=== PATIENT | male | born 1990 ===

== ENCOUNTER 2016-09-28 12:06 | Day surgery (SDC) | payer OTHER ==
[2016-09-28 12:15] VITALS: BMI 26.6
--- NOTE | 2016-09-28 13:13 | C.PDOC ---
History Of Present Illness 25-year-old male, presents to the emergency department for stent removal by Dr Sarthak Malik, patient has no physical complaints at this time Time Seen by Provider: 09/28/16 12:45 Chief Complaint (Nursing): Medical Clearance History Per: Patient History/Exam Limitations: no limitations Past Medical History Reviewed: Historical Data, Nursing Documentation, Vital Signs Vital Signs: Last Vital Signs Temp 98.3 F 09/28/16 13:22 Pulse 72 09/28/16 13:22 Resp 18 09/28/16 13:22 BP 128/87 09/28/16 13:22 Pulse Ox 98 09/28/16 13:22 - Medical History PMH: Asthma, Kidney Stones, Chronic Kidney Disease - [facility] Procedures DILATION OF LEFT URETER WITH INTRALUMINAL DEVICE, ENDO (07/09/16) FRAGMENTATION IN LEFT KIDNEY PELVIS, ENDO (09/05/16) Family History: States: Unknown Family Hx - Social History Hx Tobacco Use: Yes (light smoker) Hx Alcohol Use: No Hx Substance Use: No - Immunization History Hx Tetanus Toxoid Vaccination: No Hx Influenza Vaccination: No Hx Pneumococcal Vaccination: Yes Review Of Systems Except As Marked, All Systems Reviewed And Found Negative. Constitutional: Negative for: Fever, Chills Cardiovascular: Negative for: Chest Pain Respiratory: Negative for: Shortness of Breath Gastrointestinal: Negative for: Vomiting Skin: Negative for: Rash Neurological: Negative for: Weakness, Numbness, Headache, Dizziness Physical Exam - Physical Exam Appears: Non-toxic, No Acute Distress Skin: Warm, Dry, No Rash Eye(s): bilateral: Normal Inspection Nose: Normal Oral Mucosa: Moist Lips: Normal Appearing Neck: Normal ROM Respiratory: No Accessory Muscle Use Extremity: Normal ROM Neurological/Psych: Oriented x3, Normal Speech ED Course And Treatment - Laboratory Results Result Diagrams: 09/28/16 13:25 09/28/16 13:25 O2 Sat by Pulse Oximetry: 96 Progress Note: CASE DW Dr Sarthak Malik, states to admit patient for same day surgery Disposition - Disposition Disposition: HOSPITALIZED Disposition Time: 13:49 Condition: STABLE - Clinical Impression Clinical Impression: Urinary tract stones - Scribe Statement The provider has reviewed the documentation as recorded by the Scribame James All medical record entries made by the Scribe were at my direction and personally dictated by me. I have reviewed the chart and agree that the record accurately reflects my personal performance of the history, physical exam, medical decision making, and the department course for this patient. I have also personally directed, reviewed, and agree with the discharge instructions and disposition. Decision To Admit - Pt Status Changed To: Hospital Disposition Of: SDS- Endo,OR,Cath,IR - . Bed Request Type: Same Day Surgery Admitting Physician: Sarthak Malik Patient Diagnosis: Urinary tract stones
[2016-09-28 13:35] LABS: BASO # 0.1 K/uL (0.0-0.2); BASO % 1.1 % (0.0-2.0); EOS # 0.9 K/uL (0.0-0.7); HEMATOCRIT 43.7 % (35.0-51.0); LYMPH # 2.5 K/uL (1.0-4.3); LYMPH % 29.1 % (20.0-40.0); MEAN CELL VOLUME 81.3 fL (80.0-94.0); MEAN CORPUSCULAR HEMOGLOBIN 27.1 pg (27.0-31.0); MEAN CORPUSCULAR HGB CONC 33.3 g/dL (33.0-37.0); MONO # 0.5 K/uL (0.0-0.8); MONO % 5.9 % (0.0-10.0); NRBC % 0.1 % (0.0-2.0); WHITE BLOOD COUNT 8.7 K/uL (4.8-10.8)
[2016-09-28 13:42] LABS: CHLORIDE 101 mmol/L (98-107)
[2016-09-28 13:43] LABS: POTASSIUM 3.9 mmol/L (3.6-5.2); SODIUM 143 mmol/L (132-148)
[2016-09-28 13:45] LABS: ALB/GLOB RATIO 1.2 (1.0-2.1); AST/SGOT 19 U/L (17-59); BILIRUBIN,TOTAL 0.4 mg/dL (0.2-1.3); BLOOD UREA NITROGEN 9 mg/dL (9-20); CARBON DIOXIDE 29 mmol/L (22-30); GFR AFRICAN-AMERICAN > 60; TOTAL PROTEIN 7.3 g/dL (6.3-8.3)
[2016-09-28 13:46] LABS: ALKALINE PHOSPHATASE 68 U/L (38-126); ALT/SGPT 38 U/L (21-72); GLUCOSE,RANDOM 80 mg/dL (75-110)
[2016-09-28] MEDS ORDERED: Morphine 4 MG/ML VIAL ONE (14:12)
[2016-09-28] MEDS ORDERED: Lactated Ringer's 1,000 ML IV ONE (14:32)
--- NOTE | 2016-09-28 14:45 | RAD ---
HISTORY: preop COMPARISON: Chest x-ray performed 07/10/16 TECHNIQUE: Chest, one view. FINDINGS: Examination limited by habitus. LUNGS: No focal consolidation. Please note that chest x-ray has limited sensitivity for the detection of pulmonary masses. PLEURA: No significant pleural effusion identified. No definite pneumothorax . CARDIOVASCULAR: The cardiomediastinal silhouette appears within normal limits of size. OSSEOUS STRUCTURES: No acute osseous abnormality identified. VISUALIZED UPPER ABDOMEN: Unremarkable. OTHER FINDINGS: None. IMPRESSION: No focal consolidation, significant pleural effusion, or definite pneumothorax identified.
[2016-09-28] MEDS ORDERED: Oxycodone/Acetaminophen 5/325 mg Tab PO PRN (16:38)
[2016-09-28] MEDS ORDERED: Iohexol 240 (50 ml) ONE (16:47)
[2016-09-28] MEDS ORDERED: cefTRIAXone IV 1 gm in Dextros 50 ML IVPB ONE (16:47)
[2016-09-28] MEDS ORDERED: Midazolam 2 MG/2 ML VIAL ONE (16:50)
[2016-09-28] MEDS ORDERED: Propofol 10 mg/ml Inj (20 ML) ONE ×2 (16:50→17:08)
[2016-09-28] MEDS ORDERED: Lidocaine Hydrochloride 5 ML INJ ONE (16:51)
[2016-09-28] MEDS ORDERED: Gentamicin 80 mg in 0.9% NS 100 ML IVPB SCH (17:00)
[2016-09-28] MEDS ORDERED: Albuterol 0.083% Inhal Sol (2.5 mg/3 mL) UD INH STA (17:34)
[2016-09-28 18:32] VITALS: BP 132/70; PULSE 66; RESP 20; TEMP 97.3; O2SAT 100
--- NOTE | 2016-09-29 15:03 | RAD ---
HISTORY: LEFT KIDNEY STONE COMPARISON: 09/06/2016. FINDINGS: BOWEL: Normal. No obstruction. No free air. BONES: Normal. OTHER FINDINGS: Presumed ureteral stent on the left. Stippled calcification in the lower pole of the left kidney again noted. IMPRESSION: Left-sided ureteral stent. Left-sided renal calculi.
--- NOTE | 2016-09-30 11:08 | RAD ---
Fluoroscopy dated 09/28/2016 History: Kidney stone. . Stent removal. Fluoroscopic images of the upper and lower abdomen performed vinh abdominal radiograph 09/06/2016 Correlation made with Previously noted in situ left ureteral stent no longer visible. Calcifications seen overlying lower pole left kidney less well delineated on this exam due to overlying bowel gas. Approximately 2.75 seconds of fluoroscopy time utilized. Total Radiation Dose = 302.2 mGy. Impression: Fluoroscopic guided ureteral stent removal. .
--- NOTE | 2016-10-01 09:16 | CARD ---
APPROVED REPORT EKG Measurement Heart [id number] <Conclusion> Normal sinus rhythm with sinus arrhythmia Normal ECG
--- NOTE | 2016-10-16 08:40 | HP ---
REASON FOR ADMISSION: Further treatment of kidney stones. A very pleasant, but extremely noncompliant gentleman who has severe kidney stone disease. I have be en treating him for over a month now where I have been trying to get the patient to come back in. He is just very reluctant to come back in for various reasons. At this point, he presents to the Emergency Room with severe pain and we are going to bring him to [facility] operating room immediately, see the plans listed below, and try to complete the treatment of his st ones. Specifically, the patient is going to most likely have remnant stones up in his kidney. I had recomm ended shockwave lithotripsy for these stones. What we are doing is clearing out the kidney to the bladder. That is any ureteral stones that are evident, but at this point since he is noncompliant, I just want to remove his stent. See the body of the operative report as listed. We will try to get the stones if we can, but most importantly is to have the patient without a stent so he does not have retained stent. PAST MEDICAL AND SURGICAL HISTORY: As listed above, noncontributory. SOCIAL HISTORY: This is a difficult problem for the patient, not only that he is uninsured, but he h as difficult relationships and at least the story that he presents to me. He asked me to lie to his father directly to say that I was charging more money. He brought a father in and then he said he was his stepfather in some story. I explained to the patient that my issues are medical treatment and not his social status. But after discussing all these options with the patient and just mentioning this for chart completion , it is a peculiar story where he has some difficulty maintaining jobs and also maintaining expenses. According to the stepfather that came in, said he has bailed him out many, many times before and came in to pay the office bills, but that is a significant social impact because it affects my recommenda tions and treatments (and I have explained this to the patient in general and specific terms that I a m not here to lie to somebody else and I am also here as medicine, but even knowing that I am l eaving him with stones after today, the potential for stones, I may be able to get them all out, but either way, I need to get his stent out before it becomes an encrusted and retained stent). REVIEW OF SYSTEMS: As above, noncontributory other than usual pain from the stent. Nothing else significant. The patient has been back to the ER with no significant other troubles. PHYSICAL EXAMINATION GENERAL: Well-nourished male, in no apparent distress. VITAL SIGNS: Within normal limits . ABDOMEN: Soft, nontender. No flank mass appreciated. GENITOURINARY: Normal male phallus no testicular mass. RECTAL: 10-20 gram prostate, soft and smooth. LABORATORIES: See chart. DIAGNOSES: Urolithiasis, hematuria, hydronephrosis, severe flank pain and tremendous stone burden. PLAN: The patient presented with a large stone in his ureter. At that point, we placed a stent. We have recommended shockwave lithotripsy. For various insurance reasons, he was not able to get out [facility]. We then treated him here with ureteroscopy and laser lithotripsy. Again, I did as best as possible. Now, it is time we are just going to take the stent out and make sure there are no stones between the kidney and the bladder. And then further plans will follow, but my recommendation is still for more treatment, but the patien t has been fairly unreliable. I just want to proceed. I have explained this all to the patient at length. So the plan is as follows: 1. Cystoscopy. 2. Ureteroscopy. 3. Laser of any stones that are visible. 4. Removal of everything. We may remove the stent with a dangle, but either way, he will be able to take that out within a day. Jace Malik MD cc: [phone] TT: 10/16/2016 08:39:12 en
--- NOTE | 2016-10-16 09:39 | OP ---
PROCEDURE DATE: 09/28/2016 UROLOGY OPERATIVE REPORT PREOPERATIVE DIAGNOSIS: See the previously dictated history and physical and consultation note, and many previous progress notes. Also see the office chart notes. The patient is here now for the following procedure. He is here for a cystoscopy, ureteroscopy, and laser lithotripsy. POSTOPERATIVE DIAGNOSIS: See the previously dictated history and physical and consultation note, and many previous progress notes. Also see the office chart notes. The patient is here now for the following procedure. He is here for a cystoscopy, ureteroscopy, and laser lithotripsy. PROCEDURE: Cystoscopy, removal of double-J stent, ureteroscopy, laser lithotripsy of stones. An insertion of a double-J stent with dangles. Cystoscopy, ureteroscopy, laser. COMPLICATIONS: There were no complications. BLOOD LOSS: Less than 10 mL. INDICATIONS: See the history and physical for the details. A very pleasant, but ____ gentleman. He is here for the above procedure. I discussed options in that after today, we are going to be moving the stent, and then he will need a ny more procedures. It is conceivable that will not have removed all the stone material until ____ b etween the bladder and the ureter, and if there are any represent of ____ kidney stones ____, we can at that time treat those stones with the ureteroscope, and he is welcome to come back for more treatm ent, but at this point, I just want to remove the stent. PROCEDURE: After obtaining informed consent, the patient was placed on the table, routine monitors p laced, timeouts were called to confirm patient positioning. Cystoscope via the urethra. Timeouts were called to confirm the patient and positioning. Cystoscope via the urethra. We identified the old stent. Removed it. Did a wire ____up to ____ kidney. We went adjacent with t he ureteroscope. Any stones that I identified I cleared to the point that there are no stones left. Overall, we did multiple imaging. There were no complications. At the termination, there is no stone between the kidney and the ____. ADDENDUM: ____ I spoke to the patient subsequently, and he had some discomfort but no further major pains. Jace Malik MD cc: [phone] TT: 10/16/2016 08:57:14 jn
== END 2016-09-28 18:33 | disposition home or self-care (01) ==
LOC: C.ER 12:06 → C.SDS 13:49
PROVIDERS: ATTEND Urology
DX: N13.2 Hydronephrosis with renal and ureteral calculous obstruction (principal)
CPT/HCPCS: 52353; 71010; 74000; 76000; 80053; 85025; 85610; 85730; 86850; 86900; 93005; 96374; 99285; J0696; J1580; J2270; J7120

== ENCOUNTER 2016-11-13 12:51 | Observation (INO) | payer OTHER ==
[2016-11-13 12:52] VITALS: BMI 26.6
[2016-11-13] MEDS ORDERED: Sodium Chloride 0.9% 1,000 ML ONE (13:26)
--- NOTE | 2016-11-13 13:26 | C.PDOC ---
History Of Present Illness 25 y/o male pmhx kidney stones presents to the ED with complains of left flank pain, nausea and vomiting. Pt is a patient of Jace Croft. Urethral stent placed months ago. Denies fever, chest pain, SOB, diarrhea or any other complaints. Time Seen by Provider: 11/13/16 13:20 Chief Complaint (Nursing): Male Genitourinary History Per: Patient History/Exam Limitations: no limitations Onset/Duration Of Symptoms: Hrs Current Symptoms Are (Timing): Still Present Severity: Moderate Quality Of Discomfort: "Pain" Associated Symptoms: Nausea, Vomiting, Back Pain (left flank). denies: Fever, Diarrhea, Chest Pain Alleviating Factors: None Recent travel outside of the [place]: No Past Medical History Reviewed: Historical Data, Nursing Documentation, Vital Signs Vital Signs: Last Vital Signs Temp 97.6 F 11/13/16 13:05 Pulse 67 11/13/16 13:05 Resp 16 11/13/16 13:05 BP 126/77 11/13/16 13:05 Pulse Ox 97 11/13/16 14:01 - Medical History PMH: Asthma, Kidney Stones, Chronic Kidney Disease - [facility] Procedures DILATION OF LEFT URETER WITH INTRALUMINAL DEVICE, ENDO (07/09/16) FRAGMENTATION IN LEFT KIDNEY PELVIS, ENDO (09/05/16) Family History: States: Unknown Family Hx - Social History Hx Tobacco Use: Yes (light smoker) Hx Alcohol Use: No Hx Substance Use: No - Immunization History Hx Tetanus Toxoid Vaccination: No Hx Influenza Vaccination: No Hx Pneumococcal Vaccination: Yes Review Of Systems Except As Marked, All Systems Reviewed And Found Negative. Constitutional: Negative for: Fever Cardiovascular: Negative for: Chest Pain Gastrointestinal: Positive for: Nausea, Vomiting. Negative for: Abdominal Pain , Diarrhea Musculoskeletal: Positive for: Back Pain (left flank) Physical Exam - Physical Exam Appears: Non-toxic, In Acute Distress (uncomfortable) Skin: Warm, Diaphoretic, No Rash Head: Atraumatic, Normacephalic Oral Mucosa: Moist Neck: Normal ROM, Supple Chest: Symmetrical Cardiovascular: Rhythm Regular, No Murmur Respiratory: Normal Breath Sounds, No Rales, No Rhonchi, No Wheezing Gastrointestinal/Abdominal: Normal Exam, Soft, No Tenderness Back: CVA Tenderness (left) Extremity: Bilateral: Atraumatic Neurological/Psych: Oriented x3, Normal Speech ED Course And Treatment - Laboratory Results Result Diagrams: 11/13/16 13:47 11/13/16 13:47 O2 Sat by Pulse Oximetry: 97 (room air) Pulse Ox Interpretation: Normal Progress Note: Plan: CT abd, labs, dilaudid, zofran, UA, IV fluids. Case was d/ w who accepted patient to his service for observation and possible uretheral stent. Disposition - Disposition Disposition: HOSPITALIZED Disposition Time: 15:11 Condition: FAIR - Clinical Impression Clinical Impression: Renal colic on left side - PA / CELL TOWER CLIMBER / Resident Statement MD/DO has reviewed & agrees with the documentation as recorded. - Scribe Statement The provider has reviewed the documentation as recorded by the Scribe Omid Go All medical record entries made by the Staceyibe were at my direction and personally dictated by me. I have reviewed the chart and agree that the record accurately reflects my personal performance of the history, physical exam, medical decision making, and the department course for this patient. I have also personally directed, reviewed, and agree with the discharge instructions and disposition. Decision To Admit - Pt Status Changed To: Hospital Disposition Of: Observation - . Bed Request Type: Regular Admitting Physician: Sarthak Malik Patient Diagnosis: Renal colic on left side
[2016-11-13] MEDS ORDERED: Sodium Chloride 0.9% 1,000 ML IV STA (13:27)
[2016-11-13] MEDS ORDERED: HYDROmorphone 1 mg/ml ISec IVP STA (13:27)
[2016-11-13 13:53] LABS: BASO # 0.1 K/uL (0.0-0.2); BASO % 0.7 % (0.0-2.0); EOS # 0.4 K/uL (0.0-0.7); EOS % 3.5 % (0.0-4.0); HEMATOCRIT 44.5 % (35.0-51.0); LYMPH # 2.7 K/uL (1.0-4.3); LYMPH % 23.9 % (20.0-40.0); MEAN CELL VOLUME 82.3 fL (80.0-94.0); MEAN CORPUSCULAR HEMOGLOBIN 26.6 pg (27.0-31.0); MEAN CORPUSCULAR HGB CONC 32.3 g/dL (33.0-37.0); MONO # 0.5 K/uL (0.0-0.8); MONO % 4.6 % (0.0-10.0); RED CELL DISTRIBUTION WIDTH 14.7 % (11.5-14.5); WHITE BLOOD COUNT 11.5 K/uL (4.8-10.8)
[2016-11-13 14:05] LABS: CHLORIDE 105 mmol/L (98-107)
[2016-11-13 14:06] LABS: POTASSIUM 3.8 mmol/L (3.6-5.2); SODIUM 141 mmol/L (132-148)
[2016-11-13 14:08] LABS: BILIRUBIN,TOTAL 0.7 mg/dL (0.2-1.3); GFR AFRICAN-AMERICAN > 60
[2016-11-13 14:09] LABS: ALB/GLOB RATIO 1.3 (1.0-2.1); ALKALINE PHOSPHATASE 78 U/L (38-126); ALT/SGPT 26 U/L (21-72); AST/SGOT 26 U/L (17-59); BLOOD UREA NITROGEN 8 mg/dL (9-20); CALCIUM 9.1 mg/dl (8.6-10.4); CARBON DIOXIDE 24 mmol/L (22-30); GLUCOSE,RANDOM 108 mg/dL (75-110); TOTAL PROTEIN 7.5 g/dL (6.3-8.3)
[2016-11-13 14:30] LABS: RBC URINE 332 /hpf (0-3); URINE BACTERIA RARE (<OCC); URINE BILIRUBIN NEGATIVE (NEGATIVE); URINE BLOOD 1+ (NEGATIVE); URINE COLOR Yellow (YELLOW); URINE GLUCOSE (UA) NORMAL (Normal); URINE KETONE NEGATIVE (NEGATIVE); URINE LEUKOCYTE ESTERASE NEG Leu/uL (Negative); URINE PROTEIN 2+ mg/dL (NEGATIVE); URINE UROBILINOGEN NORMAL mg/dL (0.2-1.0); WBC URINE 2 /hpf (0-5)
--- NOTE | 2016-11-13 14:30 | CT ---
PROCEDURE: CT Abdomen and Pelvis without Oral or IV contrast. HISTORY: left flank pain COMPARISON: CT abdomen and pelvis without contrast performed 07/09/16 TECHNIQUE: Contiguous axial images of the abdomen and pelvis. No oral or IV contrast administered. Coronal and Sagittal reformats generated and reviewed. Radiation dose: Total exam DLP = 1159.58 mGy-cm. This CT exam was performed using one or more of the following dose reduction techniques: Automated exposure control, adjustment of the mA and/or kV according to patient size, and/or use of iterative reconstruction technique. FINDINGS: There is limited evaluation of the solid organs without the administration of IV contrast. LOWER THORAX: No visible consolidation, pleural effusion, or pneumothorax. LIVER: Unremarkable unenhanced appearance. GALLBLADDER AND BILE DUCTS: Unremarkable unenhanced appearance. PANCREAS: Unremarkable unenhanced appearance. SPLEEN: 5 mm probable splenule. Otherwise unremarkable unenhanced appearance. ADRENALS: Unremarkable unenhanced appearance. KIDNEYS AND URETERS: Edematous enlarged left kidney. 3 mm proximal left ureteral calculus with proximal hydroureteronephrosis. 9 mm, 10 mm, 2 mm, and 3 mm nonobstructing calcifications within the lower pole kidney. The unenhanced right kidney appears unremarkable without hydronephrosis or obstructing calculus. BLADDER: Distention of the urinary bladder appears otherwise unremarkable. REPRODUCTIVE: Unremarkable. APPENDIX: The appendix appears within normal limits of caliber. No secondary signs of acute appendicitis. BOWEL: The stomach is nondistended. Lack of oral contrast limits evaluation for bowel pathology. The bowel loops appear within normal limits of caliber without evidence of intestinal obstruction. PERITONEUM: No significant free fluid. No definite free air. LYMPH NODES: Sub cm mesenteric lymph nodes, nonspecific. VASCULATURE: No aortic aneurysm. BONES: Chronic T8 vertebral body mild compression fracture deformity. Degenerative changes. OTHER FINDINGS: 3 mm fat containing umbilical hernia. IMPRESSION: Edematous enlarged left kidney. 3 mm proximal left ureteral calculus with proximal hydroureteronephrosis. 9 mm, 10 mm, 2 mm, and 3 mm nonobstructing calcifications within the lower pole kidney.
[2016-11-13] MEDS ORDERED: Dextrose 5%/0.45% NS 1,000 ML IV SCH (19:00)
[2016-11-14] MEDS ORDERED: Pneumococcal 23-Valent Vaccine IM ONE (10:00)
[2016-11-14] MEDS ORDERED: Lidocaine 2% Jelly (Uro-Jet) ONE (13:47)
[2016-11-14] MEDS ORDERED: Lactated Ringer's 1,000 ML IV ONE ×2 (13:53)
[2016-11-14] MEDS ORDERED: Midazolam 2 MG/2 ML VIAL ONE (13:53)
[2016-11-14] MEDS ORDERED: Propofol 10 mg/ml Inj (20 ML) ONE (13:53)
[2016-11-14] MEDS: cefTRIAXone IV 1 gm in Dextros 50 ML IVPB ONE ×2 (13:55→14:10)
[2016-11-14] MEDS ORDERED: HYDROmorphone 0.5 mg/0.5 ml ISec IVP PRN (14:34)
[2016-11-14] MEDS ORDERED: Lactated Ringer's 1,000 ML IV SCH (14:45)
[2016-11-14 14:52] VITALS: TEMP 98.7
[2016-11-14 15:12] VITALS: O2SAT 94
--- NOTE | 2016-11-14 15:18 | RAD ---
HISTORY: LEFT KIDNEY STONE COMPARISON: 09/28/2016 FINDINGS: BOWEL: Right cecal stool retention. . No obstruction. No free air. BONES: Bilaterals sacroiliac mild sclerotic changes -similar-appearing OTHER FINDINGS: The prior clustered calcifications projecting over the left lower renal pole are similar appearing. Each renal calcification cluster is approximately 9 to 10 mm. The left ureteral stent has been removed. No interval calcifications appreciated. IMPRESSION: Interval removal -left ureteral stent. The 2 prior left lower renal pole calculi clusters are similar appearing and similar in position
[2016-11-14 16:46] VITALS: BP 122/75; PULSE 49; RESP 20
--- NOTE | 2016-11-15 17:09 | RAD ---
PROCEDURE: Fluoroscopy up to 1 hr. HISTORY: LEFT KIDNEY STONE COMPARISON: None TECHNIQUE: Standard protocol for this study/examination. FINDINGS: Submitted images from the current procedure: 6.0 Total fluoroscopic time (continuous mode) utilized during the procedure: 11.9 seconds. IMPRESSION: Less than 1 hr fluoroscopic time utilized during performance of the procedure.
--- NOTE | 2016-11-20 19:00 | HP ---
HISTORY OF PRESENT ILLNESS: The patient is a very pleasant, but pretty noncompliant gentleman, who h as stones. We had treated him with a cystoscopy, ureteroscopy, laser various treatments and then we knew he had residual stones. I had not heard from the patient for a couple months. My recommendatio ns for the residual stones is ESWL, but for various reasons, for social reasons, insurance reasons, t he patient has not been back. He now comes, called me this morning that he is having severe renal co lic. It turns out the CT scan, he has a 3 mm stone that is now passing. I discussed options with the patient and actually we are going to admit the patient as an emergency a nd then observe him. Hopefully, that stone will pass and if not, will need to consider stent inserti on. PAST MEDICAL AND SURGICAL HISTORY: There are no other changes. SOCIAL HISTORY: He has various odds and ends jobs. Currently, he is unemployed. He is about to sta rt a new job. It is not clear where exactly he lives, he had a girlfriend. He does not live with he r, he does not live with his family. REVIEW OF SYSTEMS: Listed above. I just want to mention that since I have seen him last, he says he has been okay, it is only today th at the pain started severely. On the CT scan noted he has a 3 mm stone, plus the residual stones in the left kidney that we are aware of. PHYSICAL EXAMINATION GENERAL: Well-nourished male in no apparent distress. VITAL SIGNS: All within normal limits, included in the chart. LUNGS: Clear. ABDOMEN: Overall soft, nontender. GENITOURINARY: Normal male phallus without discharge. No testicular masses. RECTAL: Deferred until the time of cystoscopy, but I will mention now rectal exam was within normal limits. LABORATORIES: See chart. DIAGNOSES: Urolithiasis, severe renal colic, hydronephrosis and a 3 mm obstructing stone and residua l stones in the kidney. ASSESSMENT AND PLAN: The patient is a very pleasant gentleman. He has a large stone burden, it has been very clear that I have discussed with the patient and mentioned to the patient that he should adams ve treatment for those stones, specifically with shockwave lithotripsy with or without a stent insert ion. However, for various reasons, mostly socially and insurance related, he has not on any treatment, but he is coming in now with severe pain. We are going to admit the patient with 3 mm stone, it is poss ible that stone will pass and if it does not, we will consider insertion of a stent. We discussed options, risks, benefits and alternatives. The plan is to proceed depending on the carlos ent's clinical course. We will discuss this with the patient further. But for now, IV fluid hydration and then possible insertion of stent. Further plans will follow. Jace Malik MD cc: [id number] TT: 11/20/2016 18:59:35 jn
--- NOTE | 2016-11-20 19:20 | OP ---
PROCEDURE DATE: 11/14/2016 PREOPERATIVE DIAGNOSES: Urolithiasis, hematuria, hydronephrosis, hematuria, severe, severe renal col ic. POSTOPERATIVE DIAGNOSES: Urolithiasis, hematuria, hydronephrosis, hematuria, severe, severe renal co lic. PROCEDURE: Cystoscopy, left retrograde pyelogram, and insertion of a left double-J stent. COMPLICATIONS: There were no complications. BLOOD LOSS: Less than 10 mL. Termination double-J stent is inserted. The stones were identified. There were no complications, but we did not remove the stent as explained to the patient. See the hi story and physical for the details. INDICATIONS: A very pleasant gentleman who is very pleasant, but extremely noncompliant. He is 25-y ears-old. We have recommended to treat the stones. We treated him, he has a large stone burden, I p reviously treated him with cystoscopy, ureteroscopy, laser lithotripsy. All that done here and the n otes dictated. In the interim, I have been explaining to the patient that he has leftover stones, re sidual stones and that we should be treating him with ESWL +/- with a stent, but either way, the carlos ent said he has been fine until today. He is finally starting a new job shortly and he comes calling with severe, severe pain. He actually presented yesterday 11/13. At that time, a 3 mm stone plus the other stones are noted up in the kidney. Today, I told the patient that we could watch him and mayb e this 3 mm stone will pass before putting stents in. However, the patient said the pain is so sever e, he cannot make it, so we are going to put a stent in as listed above, but not treating the stones. We are going to plan to come back after he dilates up the ureter, we will plan for ureteroscopy, la ser lithotripsy and then further plans will follow. Again, I am going to encourage the patient to al low finished treatment, then complete treatment, then try to rid the body of the stones with shock wa ve lithotripsy. ____ delay has been the social issues and also lack of insurance issues. I explain ed to the patient he is better off to get the stone treated and removed, but he has yet to date not a llowed this. He is now here for the above procedure. PROCEDURE: After obtaining informed consent, the patient placed on the table, routine monitors place d, timeouts were called to confirm the patient and positioning. Cystoscope via the urethra. Ureteral orifice identified. Retrograde pyelograms are performed and a double-J stent is inserted on the left side. At the termination, excision of a left double-J stent is in good location. Bladder then cystoscoped. The patient tolerated without complication. ADDENDUM: Subsequently, the patient will be eventually discharged home in stable condition with a an for outpatient followup and management. Jace Malik MD cc: [id number] TT: 11/20/2016 19:19:37 jn
== END 2016-11-14 18:00 | disposition home or self-care (01) ==
LOC: C.ER 12:51 → C.9E 15:09 → C.3T 16:53
PROVIDERS: ADMIT Urology; ATTEND Urology
DX: N13.2 Hydronephrosis with renal and ureteral calculous obstruction (principal)
CPT/HCPCS: 52332; 74000; 74176; 76000; 80053; 81001; 83690; 85025; 87086; 96374; 96375; 96376; 99284; C1758; C1769; C2617; G0378; J0696; J1170; J1885; J2405; J7040; J7042; J7120

== ENCOUNTER 2016-11-17 10:33 | Emergency (ER) | payer OTHER ==
[2016-11-17 10:34] VITALS: BMI 26.6
[2016-11-17 10:43] VITALS: PULSE 77; RESP 18; TEMP 98.2; O2SAT 97
[2016-11-17] MEDS ORDERED: Sodium Chloride 0.9% 1,000 ML IV ONE (11:07)
[2016-11-17] MEDS ORDERED: Sodium Chloride 0.9% 1,000 ML ONE (11:49)
[2016-11-17 11:52] LABS: BASO # 0.1 K/uL (0.0-0.2); BASO % 0.9 % (0.0-2.0); EOS # 0.7 K/uL (0.0-0.7); EOS % 7.9 % (0.0-4.0); HEMATOCRIT 43.3 % (35.0-51.0); LYMPH # 1.7 K/uL (1.0-4.3); LYMPH % 20.4 % (20.0-40.0); MEAN CORPUSCULAR HEMOGLOBIN 26.8 pg (27.0-31.0); MEAN CORPUSCULAR HGB CONC 32.6 g/dL (33.0-37.0); MEAN PLATELET VOLUME 9.7 fL (7.2-11.7); MONO # 0.4 K/uL (0.0-0.8); MONO % 4.7 % (0.0-10.0); NRBC % 0.2 % (0.0-2.0); RED CELL DISTRIBUTION WIDTH 14.6 % (11.5-14.5); WHITE BLOOD COUNT 8.5 K/uL (4.8-10.8)
[2016-11-17 11:57] LABS: RBC URINE 130 /hpf (0-3); URINE BACTERIA RARE (<OCC); URINE BILIRUBIN NEGATIVE (NEGATIVE); URINE BLOOD 2+ (NEGATIVE); URINE COLOR Yellow (YELLOW); URINE GLUCOSE (UA) NORMAL (Normal); URINE KETONE NEGATIVE (NEGATIVE); URINE LEUKOCYTE ESTERASE 2+ Leu/uL (Negative); URINE PROTEIN 1+ mg/dL (NEGATIVE); URINE UROBILINOGEN NORMAL mg/dL (0.2-1.0); WBC URINE 10 /hpf (0-5)
[2016-11-17 12:00] LABS: CHLORIDE 102 mmol/L (98-107); POTASSIUM 4.2 mmol/L (3.6-5.2); SODIUM 141 mmol/L (132-148)
[2016-11-17 12:02] LABS: GFR AFRICAN-AMERICAN > 60
[2016-11-17 12:03] LABS: ALB/GLOB RATIO 1.3 (1.0-2.1); ALKALINE PHOSPHATASE 64 U/L (38-126); ALT/SGPT 25 U/L (21-72); AST/SGOT 20 U/L (17-59); BILIRUBIN,TOTAL 0.5 mg/dL (0.2-1.3); BLOOD UREA NITROGEN 7 mg/dL (9-20); CARBON DIOXIDE 26 mmol/L (22-30); GLUCOSE,RANDOM 91 mg/dL (75-110); TOTAL PROTEIN 7.1 g/dL (6.3-8.3)
[2016-11-17 12:04] LABS: INR 0.9
[2016-11-17] MEDS ORDERED: Morphine 4 MG/ML VIAL ONE ×2 (12:14→14:50)
--- NOTE | 2016-11-17 13:40 | C.PDOC ---
History Of Present Illness 25 y/o male presents to the ED with complains of severe lower abdominal pain which onset after uretral stent placed 2 days ago. Pain associated with hematuria. Patient discussed symptoms with Dr Croft who told him to come to ED for further evaluation. Denies fever, chills, back pain or any other complaints. Time Seen by Provider: 11/17/16 10:50 Chief Complaint (Nursing): Back Pain History Per: Patient History/Exam Limitations: no limitations Onset/Duration Of Symptoms: Days Current Symptoms Are (Timing): Still Present Quality Of Discomfort: Sharp Severity: Moderate Pain Scale Rating Of: 8 Associated Symptoms: None Exacerbating Factor(s): Nothing Recent travel outside of the [place]: No Past Medical History Reviewed: Historical Data, Nursing Documentation, Vital Signs Vital Signs: Last Vital Signs Temp 98.2 F 11/17/16 10:41 Pulse 77 11/17/16 10:41 Resp 18 11/17/16 10:41 BP 122/78 11/17/16 14:55 Pulse Ox 97 11/17/16 14:56 - Medical History PMH: Asthma, Kidney Stones, Chronic Kidney Disease - [facility] Procedures DILATION OF LEFT URETER WITH INTRALUMINAL DEVICE, ENDO (07/09/16) FRAGMENTATION IN LEFT KIDNEY PELVIS, ENDO (09/05/16) Family History: States: No Known Family Hx - Social History Hx Tobacco Use: Yes (light smoker) Hx Alcohol Use: No Hx Substance Use: No - Immunization History Hx Tetanus Toxoid Vaccination: No Hx Influenza Vaccination: No Hx Pneumococcal Vaccination: Yes Review Of Systems Except As Marked, All Systems Reviewed And Found Negative. Constitutional: Negative for: Fever, Chills Gastrointestinal: Positive for: Abdominal Pain (severe). Negative for: Vomiting Genitourinary: Positive for: Hematuria Musculoskeletal: Negative for: Back Pain Physical Exam - Physical Exam Appears: Non-toxic, In Acute Distress (mild painful distress) Skin: Warm, Dry, No Rash Head: Atraumatic, Normacephalic Eye(s): bilateral: Normal Inspection, PERRL, EOMI Oral Mucosa: Moist Neck: Normal, Normal ROM, Supple Chest: Symmetrical Cardiovascular: Rhythm Regular, No Friction Rub, No Murmur Respiratory: Normal Breath Sounds, No Rales, No Rhonchi, No Wheezing Gastrointestinal/Abdominal: Normal Exam, Soft, No Tenderness Back: Normal Inspection, No CVA Tenderness Extremity: Normal ROM, No Swelling Extremity: Bilateral: Atraumatic Neurological/Psych: Oriented x3, Normal Speech, Normal Motor Gait: Steady ED Course And Treatment - Laboratory Results Result Diagrams: 11/17/16 11:49 11/17/16 11:49 O2 Sat by Pulse Oximetry: 97 (room air) Pulse Ox Interpretation: Normal Medical Decision Making Medical Decision Making: Plan: XR abdomen The case was discussed with Dr. Jace Malik who states if the stent is in place, then there is no need for admission. XR abdominal plate shows stent in place, no obstruction or free air. On re-exam , the patient reports improvement of symptoms. Lungs are CTA, heart is RRR, abdomen is soft, non-tender and patient is tolerating PO well. Patient is ambulatory in the ED with steady gait. Follow up with the Urologist within 1-2 days, Return if worsened. Disposition - Disposition Referrals: Sarthak Malik MD [Staff Provider] - Disposition: HOME/ ROUTINE Disposition Time: 14:55 Condition: GOOD Additional Instructions: Follow up with the medical doctor within 1-2 days, Return if worsened. Instructions: Renal Colic (ED) - Clinical Impression Clinical Impression: Renal colic, Left flank pain - PA / VISUAL MERCHANDISING COORDINATOR / Resident Statement MD/DO has reviewed & agrees with the documentation as recorded. - Scribe Statement The provider has reviewed the documentation as recorded by the Davidson Go All medical record entries made by the Davidson were at my direction and personally dictated by me. I have reviewed the chart and agree that the record accurately reflects my personal performance of the history, physical exam, medical decision making, and the department course for this patient. I have also personally directed, reviewed, and agree with the discharge instructions and disposition.
--- NOTE | 2016-11-17 14:00 | RAD ---
HISTORY: Abdominal pain following stent placement. COMPARISON: 11/14/2016. FINDINGS: BOWEL: Normal. No obstruction. No free air. BONES: Normal. OTHER FINDINGS: Position of the double J stent catheter(s): Satisfactory. Calculi again identified in the lower pole of the left kidney. IMPRESSION: Satisfactory position of unilateral, left double-J stent catheter. No acute findings. Concordant results with the preliminary interpretation rendered by the emergency department physician procedure.
[2016-11-17 14:56] VITALS: BP 122/78
--- NOTE | 2016-11-24 13:46 | CARD ---
APPROVED REPORT EKG Measurement Heart [id number] <Conclusion> Normal sinus rhythm Normal ECG
== END 2016-11-17 15:25 | disposition home or self-care (01) ==
LOC: C.ER 10:33
DX: N23 Unspecified renal colic (principal); Z98.890 Other specified postprocedural states
CPT/HCPCS: 74000; 80053; 81001; 85025; 85610; 85730; 96361; 96374; 96375; 96376; 99283; J1885; J2270; J7040

== ENCOUNTER 2016-11-20 11:49 | Observation (INO) | payer OTHER ==
[2016-11-20 11:49] VITALS: BMI 26.6
--- NOTE | 2016-11-20 12:45 | C.PDOC ---
History Of Present Illness Patient is a 25 year old male with a PMHx of kidney stones sent to the ER by his urologist for a stent removal. Patient denies any physical complaints at this time. Time Seen by Provider: 11/20/16 12:40 Chief Complaint (Nursing): Male Genitourinary History Per: Patient History/Exam Limitations: no limitations Onset/Duration Of Symptoms: Other (No symptoms) Current Symptoms Are (Timing): Gone (No symptoms) Associated Symptoms: denies: Fever, Nausea, Vomiting Recent travel outside of the [place]: No Past Medical History Reviewed: Historical Data, Nursing Documentation, Vital Signs Vital Signs: Last Vital Signs Temp 97.8 F 11/20/16 14:26 Pulse 56 L 11/20/16 14:26 Resp 16 11/20/16 14:26 BP 122/75 11/20/16 14:26 Pulse Ox 98 11/20/16 14:26 - Medical History PMH: Asthma, Kidney Stones, Chronic Kidney Disease - [facility] Procedures DILATION OF LEFT URETER WITH INTRALUMINAL DEVICE, ENDO (07/09/16) FRAGMENTATION IN LEFT KIDNEY PELVIS, ENDO (09/05/16) Family History: States: Unknown Family Hx - Social History Hx Tobacco Use: Yes (light smoker) Hx Alcohol Use: No Hx Substance Use: No - Immunization History Hx Tetanus Toxoid Vaccination: No Hx Influenza Vaccination: No Hx Pneumococcal Vaccination: Yes Review Of Systems Except As Marked, All Systems Reviewed And Found Negative. Physical Exam - Physical Exam Appears: Well, Non-toxic Skin: Normal Color, Warm, Dry Head: Atraumatic, Normacephalic Oral Mucosa: Moist Chest: Symmetrical, No Tenderness Cardiovascular: Rhythm Regular, No Murmur Respiratory: Normal Breath Sounds, No Rales, No Rhonchi, No Wheezing Gastrointestinal/Abdominal: Soft, No Tenderness Neurological/Psych: Oriented x3, Normal Speech, Normal Cognition ED Course And Treatment - Laboratory Results Result Diagrams: 11/20/16 13:40 11/20/16 13:40 O2 Sat by Pulse Oximetry: 100 (Room air) Pulse Ox Interpretation: Normal Medical Decision Making Medical Decision Making: Plan: * Blood work Patient discussed with Dr. Malik, will take patient to OR. Spoke with Dr. Malik at 13:43, states patient is ready to go up to the OR, does not need results of lab tests. Disposition - Disposition Disposition: HOSPITALIZED Disposition Time: 16:07 Condition: STABLE - Clinical Impression Clinical Impression: Encounter for removal of ureteral stent - Staceyibe Statement The provider has reviewed the documentation as recorded by the Scribame Betancourt All medical record entries made by the Staceyibe were at my direction and personally dictated by me. I have reviewed the chart and agree that the record accurately reflects my personal performance of the history, physical exam, medical decision making, and the department course for this patient. I have also personally directed, reviewed, and agree with the discharge instructions and disposition.
[2016-11-20 13:46] LABS: BASO # 0.1 K/uL (0.0-0.2); BASO % 1.3 % (0.0-2.0); EOS # 0.8 K/uL (0.0-0.7); EOS % 8.6 % (0.0-4.0); HEMATOCRIT 42.4 % (35.0-51.0); LYMPH # 2.3 K/uL (1.0-4.3); LYMPH % 26.5 % (20.0-40.0); MEAN CORPUSCULAR HEMOGLOBIN 26.8 pg (27.0-31.0); MEAN CORPUSCULAR HGB CONC 32.7 g/dL (33.0-37.0); MEAN PLATELET VOLUME 9.7 fL (7.2-11.7); MONO # 0.4 K/uL (0.0-0.8); MONO % 4.4 % (0.0-10.0); RED CELL DISTRIBUTION WIDTH 14.7 % (11.5-14.5); WHITE BLOOD COUNT 8.8 K/uL (4.8-10.8)
[2016-11-20 13:54] LABS: INR 0.9
[2016-11-20 13:56] LABS: CHLORIDE 100 mmol/L (98-107); POTASSIUM 4.1 mmol/L (3.6-5.2); SODIUM 136 mmol/L (132-148)
[2016-11-20 13:58] LABS: BILIRUBIN,TOTAL < 0.1 mg/dL (0.2-1.3); GFR AFRICAN-AMERICAN > 60
[2016-11-20 13:59] LABS: ALB/GLOB RATIO 1.4 (1.0-2.1); ALKALINE PHOSPHATASE 63 U/L (38-126); ALT/SGPT 32 U/L (21-72); AST/SGOT 22 U/L (17-59); BLOOD UREA NITROGEN 8 mg/dL (9-20); CALCIUM 9.1 mg/dl (8.6-10.4); CARBON DIOXIDE 29 mmol/L (22-30); GLUCOSE,RANDOM 79 mg/dL (75-110)
[2016-11-20] MEDS ORDERED: Midazolam 2 MG/2 ML VIAL ONE (14:19)
[2016-11-20] MEDS ORDERED: Lidocaine Hydrochloride 5 ML INJ ONE (14:19)
[2016-11-20] MEDS ORDERED: Albuterol HFA 90 mcg/actuation (8 g) ONE (14:20)
[2016-11-20] MEDS ORDERED: Iohexol 240 (50 ml) ONE (14:42)
[2016-11-20] MEDS ORDERED: cefTRIAXone IV 1 gm in Dextros 50 ML IVPB ONE (14:42)
[2016-11-20] MEDS ORDERED: Lidocaine 2% Jelly (Uro-Jet) ONE (14:42)
[2016-11-20] MEDS ORDERED: Propofol 10 mg/ml Inj (20 ML) ONE (15:39)
[2016-11-20] MEDS ORDERED: ceFAZolin 1 MG in Sodium Chloride 0.9% 50 ML IVPB SCH (16:00)
[2016-11-20] MEDS: Oxycodone/Acetaminophen 5/325 mg Tab PO PRN ×3 (16:50→20:39)
[2016-11-20] MEDS: ceFAZolin IV 1 gm in Dextrose 1 GM/50 ML BAG IVPB SCH (19:17)
--- NOTE | 2016-11-20 19:36 | OP ---
PROCEDURE DATE: 11/20/2016 PREOPERATIVE DIAGNOSES: Urolithiasis, hematuria, large stone burden, renal colic, stent pain and dis comfort, hematuria. POSTOPERATIVE DIAGNOSES: Urolithiasis, hematuria, large stone burden, renal colic, stent pain and di scomfort, hematuria. PROCEDURES: Emergency cystoscopy, removal of a left double-J stent, left ureteroscopy, left retrogra de pyelogram, insertion of a left double-J stent, attempted left stone basketing. COMPLICATIONS: There were no complications. BLOOD LOSS: Less than 10 mL. FINDINGS: 1. Normal anterior urethra, no stricture. 2. From the veru on in it is minimally visually occlusive about 2 cm in length. 3. Ureteral orifices have a normal amount of edema. 4. I do not see any stones within the ureter. I am able to get the ureteroscope all the way up to the kidney, to the renal pelvis. You can see the pictures under fluoroscopy. Films are submitted for the radiologist to read as well. But at least, if nothing else, we have saved for hard copy for permanent documentation. I am able to ureteroscope all the way to the kidney, above the point where the previously located 3 mm stone was located. The presence of the lower pole stones is noted and identified, but not removed at this point. See the history and physical, and see even now my report. Those stones are to be treated with shock wave lithotripsy in my hands. I have discussed with the timoteo yang other options including going to other people that do ureteroscopy and renoscopy for these kind of stones, but it is not my recommendation. Specifically, see the history and physical where I discussed with the patient. He is presenting with severe renal colic from a 3 mm obstructing stone. The stones may fall. But my recommendation for him is to have a stent inserted and then go out to [facility] and get shock wave lithotripsy and then have the stent removed, but not to hailey the stones in the kidney. At this point, those stones by themselves are not the cause of problems; it's the obstruction. Even to the patient's knowledge and his report it is between the last visit and now, meaning before 0 11/13/2016, between the last set of visits and 11/13/2016, he was having no problems; in fact, was get ting ready to go back to work, and then when the stone started passing and he presented with a 3 mm o bstructing stone, that when there is a problem, but the stones in the kidney are not causing him trou ble (although my strong recommendation is to get them treated before they do cause trouble). So today's procedure is just to focus on the 3 mm stone that was in the ureter, but today I cannot fi nd it. We do have good visualization. I am able to go all the way up to the kidney, way into the renal pelv is, and in fact we basket, (see the report), but I do not catch any stones. I do not see any stones for that matter. Then just for safety sake, I leave a stent with strings attached. PROCEDURE: After obtaining informed consent, the patient was placed on the table, routine monitors p laced, timeouts were called, I confirmed the patient. I had explained to the patient in great detail all my explanations about recommendations for cystoscopy, ureteroscopy. If I see obstructing stone I am going to remove it. I am going to laser it, basket it, depending on its location. He has conse nted for all that. Regarding the kidney stones, which I know has based on the CT scan findings, I am not chasing them today but I do recommend strongly that he get a stent inserted and then have an ESW L, or that he obtain second opinion from other people who maybe treating renal stones with ureterosco py, renoscopy and laser lithotripsy, but that is not my general recommendation in this setting. Alth ough I can, but I do not recommend it strongly. After obtaining informed consent, the patient was placed on the table, routine monitors placed, timeo uts were called to confirm the patient and positioning. Cystoscope via the urethra. The old stent i s removed. Before removing anything, formula clerk film shows the stent in good location and I see a definit e stones in the left lower pole of the kidney, but I do not see anything specifically along the urete ral stent. Cystoscope via the urethra. Normal anterior urethra, no strictures. From the veru on in it is minim ally occlusive. Orifice identified, stent removed and wire put up to the kidney. It was all without difficulty under fluoroscopic imaging. We went than adjacent to the wire with the rigid ureteroscope all the way up to the kidney. I do not see any stones along the way. It is a clear pass. It looks actually very good. So at this point, I am all the way to what I think is the renal pelvis; I am pretty high up. I am down to the hub. I inject contrast to confirm my positioning. Again, the stones in the lower pole are identified. Films are submitted for the radiologist. At this point, I have the wire up to the kidney and leave i t there. I put a stone basket. I leave it open just in case I will see a little 3 mm stone and be able to gra b it and engage it, even though it is a pretty high up. So I leave the basket open the whole time; m aybe I will see something. Although, if I saw a definite stone, I would actually laser it, given the location being near the kidney. But either way, we do not see anything so we keep the basket opened the whole length of the ureter ju st in an atraumatic gentle sort of fashion just to see if there is anything that is maybe even smalle r, anything popping into the stent; nothing comes in. It stays open actually the whole time. At this point, I inserted a double-J stent over the wire that is there, confirm our positioning, empt y out the bladder. The patient tolerated the procedure without complication. Rectal exam shows a 10-20 gram prostate, s oft and smooth, everything within normal limits. The dangles are attached to the penis with tape. The patient tolerated the procedure without complication. Jace Malik MD cc: [id number] TT: 11/20/2016 19:36:13 anaid
--- NOTE | 2016-11-20 19:46 | HP ---
REASON FOR ADMISSION: He is here to remove a stent. HISTORY OF PRESENT ILLNESS: The patient is a very pleasant gentleman who I am going to remove a sten t and then do ureteroscopy and if there is a stone, then I am going to plan to laser it or basket it, depending on its location. He is very pleasant. He has a fairly large stone burden. We previously treated the stones, which we re in the kidney and the bladder. In the interim, since the original treatment, until 11/13, the patie nt was doing well with no problems, and then on 11/13 he was found to have a 3 mm stone. I tried watch ing it but on 11/14 he asked me further treat it because he was having such severe pain. We put a stent in, then actually the patient and I arranged to bring him back here. I arranged for t he OR schedule for this Sunday, 11/17. The patient was supposed to show up at 6:00 to the Emergency Room. He has various issues. I am recom mending treatment for the kidney stones with shockwave lithotripsy. He has no insurance and he has a lot of social issues. He is very pleasant about the whole matter, but very difficult to treat. So he was supposed to come to the ER. I had arranged my schedule and I arranged the OR schedule to riky mccloud here for a 7:45 case. He was supposed to go to the ER at 6:00. On Sunday, I started texting the patient and calling him, but unfortunately he had overslept, so at 9 :00 he called me that he just woke up. I explained to him if he was having such severe pain to come to the ER. The ER evaluated him; see the films and all that. The stent was in good location. No elevation of white count, no fevers so the decision was to discha rge the patient home and now he is coming in today for further emergency treatment. What I am planning for today is a cystoscopy, removal of any stent at the [facility] between the ki dney and the bladder that is ureteral stones, and I am not planning to remove the stones in the kidne y. I have discussed this with the patient that he needs that treated but my best recommendation for that treatment for me is a cysto stent and an ESWL. I did discuss that there are other people that treat with renoscopy, ureteroscopy and lithotripsy and that sometimes I even am forced into that, but not electively and that is not my recommendation, so for today, we will work on the ureteral stones. See the addendum below. PAST MEDICAL AND SURGICAL HISTORY: Otherwise no changes. SOCIAL HISTORY: He actually currently in a homeless sort of situation it sounds like. Apparently not able to live with his girlfriend anymore and not living with his father, but apparentl y is starting a new job and he says he has got a place to live in a couple of weeks. In fact, see th e below, but I am going to admit the patient for observation, but also to give him a place to sleep a fter the procedure today. PHYSICAL EXAMINATION GENERAL: Well-nourished male in no apparent distress. VITAL SIGNS: Within normal limits. ABDOMEN: Overall soft, nontender. GENITOURINARY: Normal phallus without discharge. No testicular masses. RECTAL: A 20 gram prostate, soft and smooth. LABORATORIES: See chart. DIAGNOSES: Severe renal colic, urolithiasis, hematuria. PLAN: Today we are going to do ureteroscopy if I see any stones in the ureter, but I am not planning to hailey the kidney stones. I have explained to the patient the risks, benefits and alternatives in cluding the risks of infection, bleeding, etc. Also explained the benefit of trying to get rid of th e stones, but my real recommendation is for stent and then ESWL. So for now the plan is as follows: Antibiotics, OR immediately and then further plans will follow. Based on the social settings above, we are going to admit the patient for postoperative observation a nd management. Jace Malik MD cc: [id number] TT: 11/20/2016 19:46:28 norma
[2016-11-20] MEDS ORDERED: Magnesium Citrate Oral SOL (300 ml) PO ONE (22:55)
[2016-11-21] MEDS ORDERED: Magnesium Citrate Oral SOL (300 ml) PO ONE (00:45)
[2016-11-21] MEDS: ceFAZolin IV 1 gm in Dextrose 1 GM/50 ML BAG IVPB SCH ×3 (01:32→16:10)
[2016-11-21] MEDS: Oxycodone/Acetaminophen 5/325 mg Tab PO PRN ×2 (03:03→10:14)
--- NOTE | 2016-11-21 12:45 | RAD ---
HISTORY: STENT EXCHANGE LEFT COMPARISON: 11/17/2016 FINDINGS: BOWEL: The double-J left ureteral stent is unchanged in in position on the 1st image. On image labeled 3. The proximal core was in the left upper pole calices with contrast outlining at there is mild dilatation of this calyx. The calculi in the left lower renal pole caliceal system are unchanged. No interval calculi along the course of left ureteral stent is seen. The distal core all projects over the bladder. Moderate right stool retention noted BONES: Normal. OTHER FINDINGS: None. IMPRESSION: Left ureteral stent exchange as above Left lower renal pole calculus clusters as before
--- NOTE | 2016-11-21 12:48 | RAD ---
PROCEDURE: HISTORY: STENT EXCHANGE LEFT COMPARISON: 11/20/2016 TECHNIQUE: Please note Dr. Jace Malik's operative report regarding this left ureteral stent exchange. Fluoroscopic assistance provided FINDINGS: Please note Dr. Jace Malik's operative report regarding this left ureteral stent exchange. Fluoroscopic assistance provided IMPRESSION: Please note Dr. Travis's operative report regarding this left ureteral stent exchange. Fluoroscopic assistance provided
--- NOTE | 2016-11-21 14:55 | RAD ---
HISTORY: stent placement /are there any ureteral stones or COMPARISON: November 20, 2016. FINDINGS: BOWEL: Normal. No obstruction. No free air. BONES: Normal. OTHER FINDINGS: Lower pole calculi left kidney better seen on the current study, of contrast within the collecting system is no longer apparent. Position of the double J stent catheter(s): Satisfactory IMPRESSION: Multiple tiny fragments of calculus lower pole left kidney. Stable satisfactory position of double-J stent catheter.
[2016-11-21 16:07] VITALS: BP 113/72; PULSE 57; RESP 20; TEMP 97.7; O2SAT 100
== END 2016-11-21 17:40 | disposition home or self-care (01) ==
LOC: C.ER 11:49 → C.6T 11:49 → C.SDS 13:50 → C.9S 15:38 → C.6T 17:45
PROVIDERS: ADMIT Urology; ATTEND Urology
DX: N20.0 Calculus of kidney (principal); Z59.0 Homelessness; R31.9 Hematuria, unspecified
CPT/HCPCS: 52332; 74022; 76000; 80053; 85025; 85610; 85730; 86850; 86900; 99285; C1758; C1769; C2617; G0378; J0690; J0696; J1170; J1885; J2405; Q9966

== ENCOUNTER 2017-03-24 05:26 | Emergency (ER) | payer OTHER ==
[2017-03-24 05:27] VITALS: BMI 26.6
[2017-03-24] MEDS ORDERED: Sodium Chloride 0.9% 1,000 ML IV ONE (05:41)
--- NOTE | 2017-03-24 05:45 | C.PDOC ---
History Of Present Illness Patient is a 26 y/o male who presents to the ED with complaints of left flank pain and bloody urine that began this morning. Patient denies fever and chills. No other complaints at this time. Chief Complaint (Nursing): Male Genitourinary History Per: Patient History/Exam Limitations: no limitations Onset/Duration Of Symptoms: Hrs (symptoms began this morning. ) Current Symptoms Are (Timing): Still Present Associated Symptoms: denies: Fever, Chills Recent travel outside of the [place]: No Past Medical History Reviewed: Historical Data, Nursing Documentation, Vital Signs Vital Signs: Last Vital Signs Temp 97.6 F 03/24/17 05:34 Pulse 70 03/24/17 05:34 Resp 16 03/24/17 05:34 BP 147/90 03/24/17 05:34 Pulse Ox 96 03/24/17 05:48 - Medical History PMH: Asthma, Kidney Stones, Chronic Kidney Disease - [facility] Procedures DILATION OF LEFT URETER WITH INTRALUMINAL DEVICE, ENDO (07/09/16) FRAGMENTATION IN LEFT KIDNEY PELVIS, ENDO (09/05/16) Family History: States: Unknown Family Hx - Social History Hx Tobacco Use: Yes (light smoker) Hx Alcohol Use: No Hx Substance Use: No - Immunization History Hx Tetanus Toxoid Vaccination: No Hx Influenza Vaccination: No Hx Pneumococcal Vaccination: Yes Review Of Systems Constitutional: Negative for: Fever, Chills Cardiovascular: Negative for: Chest Pain, Palpitations Respiratory: Negative for: Shortness of Breath Gastrointestinal: Positive for: Abdominal Pain (L flank pain. ). Negative for: Nausea, Vomiting, Diarrhea Physical Exam - Physical Exam Appears: Well, Non-toxic Skin: Normal Color, Warm, Dry Head: Atraumatic, Normacephalic Oral Mucosa: Moist Chest: Symmetrical Cardiovascular: Rhythm Regular, No Murmur Respiratory: Normal Breath Sounds, No Rales, No Rhonchi, No Wheezing Gastrointestinal/Abdominal: Soft, Tenderness (L flank area. ), No Guarding, No Rebound Extremity: Normal ROM (x4) Neurological/Psych: Oriented x3, Normal Speech, Normal Cognition ED Course And Treatment - Laboratory Results Result Diagrams: 03/24/17 05:55 03/24/17 05:55 O2 Sat by Pulse Oximetry: 96 (room air) Pulse Ox Interpretation: Normal Progress Note: CT A/P, UA/Urine Culture, and blood work ordered; Toradol, Flomax , Morphine, and IV Fluids administered. Disposition - Disposition Disposition Time: 07:00 Condition: STABLE Forms: [facility] (Salvadorean) - Clinical Impression Clinical Impression: Renal colic on left side - Scribe Statement The provider has reviewed the documentation as recorded by the Scribe Pretty Cunningham All medical record entries made by the Scribe were at my direction and personally dictated by me. I have reviewed the chart and agree that the record accurately reflects my personal performance of the history, physical exam, medical decision making, and the department course for this patient. I have also personally directed, reviewed, and agree with the discharge instructions and disposition.
[2017-03-24] MEDS ORDERED: Sodium Chloride 0.9% 1,000 ML ONE (05:49)
[2017-03-24 05:57] LABS: BASO # 0.1 K/uL (0.0-0.2); BASO % 1.1 % (0.0-2.0); EOS # 0.7 K/uL (0.0-0.7); EOS % 6.8 % (0.0-4.0); HEMATOCRIT 45.3 % (35.0-51.0); LYMPH # 3.6 K/uL (1.0-4.3); LYMPH % 33.8 % (20.0-40.0); MEAN CELL VOLUME 82.7 fL (80.0-94.0); MEAN CORPUSCULAR HEMOGLOBIN 27.4 pg (27.0-31.0); MEAN CORPUSCULAR HGB CONC 33.1 g/dL (33.0-37.0); MEAN PLATELET VOLUME 9.7 fL (7.2-11.7); MONO # 0.7 K/uL (0.0-0.8); MONO % 6.9 % (0.0-10.0); NRBC % 0.1 % (0.0-2.0); RED CELL DISTRIBUTION WIDTH 13.9 % (11.5-14.5); WHITE BLOOD COUNT 10.6 K/uL (4.8-10.8)
[2017-03-24 06:07] LABS: ALB/GLOB RATIO 1.3 (1.0-2.1); ALKALINE PHOSPHATASE 84 U/L (38-126); ALT/SGPT 37 U/L (21-72); AST/SGOT 20 U/L (17-59); BILIRUBIN,TOTAL 0.5 mg/dL (0.2-1.3); BLOOD UREA NITROGEN 8 mg/dL (9-20); CALCIUM 8.8 mg/dl (8.6-10.4); CARBON DIOXIDE 26 mmol/L (22-30); CHLORIDE 102 mmol/L (98-107); GFR AFRICAN-AMERICAN > 60; GLUCOSE,RANDOM 85 mg/dL (75-110); POTASSIUM 3.7 mmol/L (3.6-5.2); SODIUM 141 mmol/L (132-148); TOTAL PROTEIN 6.8 g/dL (6.3-8.3)
[2017-03-24 07:00] LABS: RBC URINE 16 /hpf (0-3); URINE BILIRUBIN NEGATIVE (NEGATIVE); URINE BLOOD 2+ (NEGATIVE); URINE CALCIUM OXALATE CRYSTALS OCC /hpf (<OCC); URINE COLOR Yellow (YELLOW); URINE GLUCOSE (UA) NORMAL (Normal); URINE KETONE NEGATIVE (NEGATIVE); URINE LEUKOCYTE ESTERASE TRACE Leu/uL (Negative); URINE PROTEIN 1+ mg/dL (NEGATIVE); URINE UROBILINOGEN NORMAL mg/dL (0.2-1.0); WBC URINE 5 /hpf (0-5)
--- NOTE | 2017-03-24 07:21 | CT ---
EXAM: CT Abdomen and Pelvis Without Intravenous Contrast EXAM DATE/TIME: 03/24/2017 5:43 AM CLINICAL HISTORY: 26 years old, male; Pain; Abdominal pain; Flank; Left; Additional info: Left flank pain, HX stones TECHNIQUE: Axial computed tomography images of the abdomen and pelvis without intravenous contrast. All CT scans at this facility use one or more dose reduction techniques, viz.: automated exposure control; ma/kV adjustment per patient size (including targeted exams where dose is matched to indication; i.e. head); or iterative reconstruction technique. Coronal and sagittal reformatted images were created and reviewed. COMPARISON: No relevant prior studies available. FINDINGS: The liver, spleen, gallbladder and pancreas appear grossly normal on this non-contrast study. There is mild left perinephric stranding.There is moderate left hydronephrosis.There is a 3 mm calculi in the proximal left ureter.There are non obstructing left renal calculi. The bowel appears grossly normal. A normal appendix is identified series 3 images [id number]. IMPRESSION: Obstructing calculi proximal left ureter.
[2017-03-24] MEDS ORDERED: Morphine 4 MG/ML VIAL ONE (07:30)
[2017-03-24 07:31] VITALS: O2SAT 97
[2017-03-24 09:13] VITALS: BP 112/73; PULSE 54; RESP 16; TEMP 97.7
== END 2017-03-24 09:30 | disposition home or self-care (01) ==
LOC: C.ER 05:26
DX: N13.2 Hydronephrosis with renal and ureteral calculous obstruction (principal); Z87.442 Personal history of urinary calculi
CPT/HCPCS: 74176; 80053; 81001; 83690; 85025; 87086; 96374; 96375; 96376; 99285; J1170; J1885; J2270; J2405; J7040

== ENCOUNTER 2017-12-20 15:32 | Emergency (ER) | payer SELFPAY ==
[2017-12-20 15:32] VITALS: BMI 26.6
[2017-12-20 15:49] VITALS: RESP 18; TEMP 98.5; O2SAT 99
[2017-12-20] MEDS ORDERED: Sodium Chloride 0.9% 1,000 ML IV ONE (16:06)
[2017-12-20] MEDS ORDERED: Sodium Chloride 0.9% 1,000 ML ONE (16:24)
[2017-12-20 16:36] LABS: BASO # 0.1 K/uL (0.0-0.2); BASO % 1.1 % (0.0-2.0); EOS # 0.3 K/uL (0.0-0.7); EOS % 2.1 % (0.0-4.0); HEMOGLOBIN 14.1 g/dL (12.0-18.0); LYMPH # 2.7 K/uL (1.0-4.3); LYMPH % 21.5 % (20.0-40.0); MEAN CELL VOLUME 81.5 fL (80.0-94.0); MEAN CORPUSCULAR HEMOGLOBIN 27.5 pg (27.0-31.0); MEAN CORPUSCULAR HGB CONC 33.8 g/dL (33.0-37.0); MONO # 0.8 K/uL (0.0-0.8); MONO % 6.3 % (0.0-10.0); NEUT # 8.5 K/uL (1.8-7.0); NRBC % 0.2 % (0.0-2.0); RBC 5.11 Mil/uL (4.40-5.90); RED CELL DISTRIBUTION WIDTH 13.4 % (11.5-14.5); WHITE BLOOD COUNT 12.3 K/uL (4.8-10.8)
[2017-12-20 16:53] LABS: ALB/GLOB RATIO 1.3 (1.0-2.1); ALT/SGPT 27 U/L (21-72); AST/SGOT 21 U/L (17-59); BLOOD UREA NITROGEN 13 mg/dL (9-20); CALCIUM 9.4 mg/dl (8.6-10.4); GFR AFRICAN-AMERICAN > 60; GFR NON-AFRICAN AMERICAN > 60
--- NOTE | 2017-12-20 17:25 | CT ---
PROCEDURE: CT Abdomen and Pelvis with Oral contrast. And pelvis 12/20/2017 HISTORY: Flank pain,, h/o kidney stones COMPARISON: Comparison made with prior CT scan of the abdomen pelvis 03/24/2017. TECHNIQUE: Contiguous axial images of the abdomen and pelvis performed without oral or intravenous contrast material. Additional 2 dimensional sagittal and coronal reformats provided. Reformats generated. Radiation dose: Total exam DLP = 1366.14 mGy-cm. This CT exam was performed using one or more of the following dose reduction techniques: Automated exposure control, adjustment of the mA and/or kV according to patient size, and/or use of iterative reconstruction technique. . FINDINGS: LOWER THORAX: Minor atelectasis and or scarring changes right posterior lung base. . LIVER: Liver is enlarged measuring over 21 cm in CC dimension. No obvious hepatic mass or collection seen on this noncontrast study. GALLBLADDER AND BILE DUCTS: Gallbladder physiologically distended. No evidence of intraluminal gallbladder calculi. . PANCREAS: The pancreas exhibits normal size and attenuation pattern without mass collection or calcification. SPLEEN: Spleen is mildly enlarged measuring nearly 13 cm in CC dimension. ADRENALS: Unremarkable. KIDNEYS AND URETERS: There are several small calcifications seen in the lower pole collecting system right kidney. . There is a small 4.7 mm calculus in the mid left ureter with moderate left-sided hydronephrosis. BLADDER: Grossly unremarkable. REPRODUCTIVE: Unremarkable. APPENDIX: Normal appendix BOWEL: Unremarkable. No obstruction. No gross mural thickening. PERITONEUM: Unremarkable. No fluid collection. No free air. LYMPH NODES: Unremarkable. No enlarged lymph nodes. VASCULATURE: Unremarkable. No aortic aneurysm. BONES: No fracture or destructive lesion. OTHER FINDINGS: None. IMPRESSION: Several small calcifications lower pole collecting system left kidney. Small approximately 4.7 mm calculus within the mid left ureter with moderate left-sided hydronephrosis. Hepatomegaly. Mild splenomegaly.
--- NOTE | 2017-12-20 17:36 | C.PDOC ---
History Of Present Illness 27 yo male, presents to ED with complaints of left sided back pain which started 3 days ago. Patient states the pain was initially intermittent and relieved with Motrin but today has been worsening and is associated with vomiting, prompting the visit. Patient states he has had similar symptoms in the past and was diagnosed with kidney stones at that time. He had lithotripsy and stent placement last year as well. He denies any fever, testicular pain, hematuria, dysuria, abdominal pain. He offers no other medical complaints. Time Seen by Provider: 12/20/17 15:55 Chief Complaint (Nursing): Male Genitourinary History Per: Patient History/Exam Limitations: no limitations Onset/Duration Of Symptoms: Days (3) Current Symptoms Are (Timing): Still Present Quality Of Discomfort: "Pain" Associated Symptoms: denies: Incontinence Additional History Per: Patient Past Medical History Reviewed: Historical Data, Nursing Documentation, Vital Signs Vital Signs: Last Vital Signs Temp 98.5 F 12/20/17 15:47 Pulse 64 12/20/17 17:45 Resp 18 12/20/17 17:45 BP 124/82 12/20/17 17:45 Pulse Ox 99 12/20/17 18:01 - Medical History PMH: Asthma, Kidney Stones (left kidney), Chronic Kidney Disease Surgical History: No Surg Hx - [facility] Procedures DILATION OF LEFT URETER WITH INTRALUMINAL DEVICE, ENDO (07/09/16) FRAGMENTATION IN LEFT KIDNEY PELVIS, ENDO (09/05/16) Family History: States: Unknown Family Hx - Social History Hx Tobacco Use: Yes (light smoker) Hx Alcohol Use: No Hx Substance Use: No - Immunization History Hx Tetanus Toxoid Vaccination: No Hx Influenza Vaccination: No Hx Pneumococcal Vaccination: Yes Review Of Systems Except As Marked, All Systems Reviewed And Found Negative. Constitutional: Negative for: Fever, Chills Gastrointestinal: Negative for: Abdominal Pain Genitourinary: Negative for: Dysuria, Frequency, Hematuria, Other (testicular pain) Musculoskeletal: Positive for: Back Pain Physical Exam - Physical Exam Appears: Non-toxic, Other (uncomfortable) Skin: Normal Color, Warm, Dry Head: Atraumatic, Normacephalic Eye(s): bilateral: Normal Inspection, EOMI Neck: Normal ROM, Supple Chest: Symmetrical Cardiovascular: Rhythm Regular Respiratory: Normal Breath Sounds Gastrointestinal/Abdominal: Soft, Tenderness (left flank tenderness) Back: Normal Inspection, No CVA Tenderness, No Vertebral Tenderness, No Decreased ROM Extremity: Normal ROM, No Pedal Edema, No Deformity Neurological/Psych: Oriented x3 ED Course And Treatment - Laboratory Results Result Diagrams: 12/20/17 16:33 12/20/17 16:33 O2 Sat by Pulse Oximetry: 99 (RA) Pulse Ox Interpretation: Normal - CT Scan/US CT Abdomen/Pelvis Other Rad Studies (CT/US): Read By Radiologist, Radiology Report Reviewed CT/US Interpretation: FINDINGS: LOWER THORAX: Minor atelectasis and or scarring changes right posterior lung base. . LIVER: Liver is enlarged measuring over 21 cm in CC dimension. No obvious hepatic mass or collection seen on this noncontrast study. GALLBLADDER AND BILE DUCTS: Gallbladder physiologically distended. No evidence of intraluminal gallbladder calculi. . PANCREAS: The pancreas exhibits normal size and attenuation pattern without mass collection or calcification. SPLEEN: Spleen is mildly enlarged measuring nearly 13 cm in CC dimension. ADRENALS: Unremarkable. KIDNEYS AND URETERS: There are several small calcifications seen in the lower pole collecting system right kidney. . There is a small 4.7 mm calculus in the mid left ureter with moderate left-sided hydronephrosis. BLADDER: Grossly unremarkable. REPRODUCTIVE: Unremarkable. APPENDIX: Normal appendix. BOWEL: Unremarkable. No obstruction. No gross mural thickening. PERITONEUM: Unremarkable. No fluid collection. No free air. LYMPH NODES: Unremarkable. No enlarged lymph nodes. VASCULATURE: Unremarkable. No aortic aneurysm. BONES: No fracture or destructive lesion. OTHER FINDINGS: None. IMPRESSION: Several small calcifications lower pole collecting system left kidney. Small approximately 4.7 mm calculus within the mid left ureter with moderate left- sided hydronephrosis. Hepatomegaly. Mild splenomegaly. Progress Note: Labs, CT Abdomen/Pelvis ordered. Patient given Morphine, IV fluids, Toradol and Zofran. On re-evaluation, pt states he feels better. Tolerating PO. Abdomen soft, nontender. Afebrile. Case discussed with Dr Malik who instructs outpt follow up in his office tomorrow. Also instructs to give pt his cell phone number to contact him further. Pt verbalizing understanding and instructed to return to ER if symptoms persist or worsen. Disposition - Disposition Referrals: Sarthak Malik MD [Staff Provider] - Disposition: HOME/ ROUTINE Disposition Time: 17:59 Condition: STABLE Additional Instructions: Call Dr Malik at [phone] to schedule appt for tomorrow. Return to ER if symptoms persist or worsen. Prescriptions: Naproxen [Naprosyn] 1 tab PO BID PRN #20 tab PRN Reason: Pain Ondansetron ODT [Zofran ODT] 1 odt PO BID PRN #6 odt PRN Reason: Nausea/Vomiting oxyCODONE/Acetaminophen [Percocet 5/325 mg Tab] 1 tab PO QID PRN #20 tab PRN Reason: Pain Tamsulosin [Flomax] 0.4 mg PO DAILY #10 cap Instructions: Kidney Stones (DC) Forms: [employer] (New Zealander) - Clinical Impression Clinical Impression: Urolithiasis - PA / ASSOCIATE ENTERTAINMENT EDITOR / Resident Statement MD/DO has reviewed & agrees with the documentation as recorded. - Scribe Statement The provider has reviewed the documentation as recorded by the Scribe (Marly Pruitt) Provider Attestation: All medical record entries made by the Scribe were at my direction and personally dictated by me. I have reviewed the chart and agree that the record accurately reflects my personal performance of the history, physical exam, medical decision making, and the department course for this patient. I have also personally directed, reviewed, and agree with the discharge instructions and disposition.
[2017-12-20] MEDS ORDERED: Morphine 4 MG/ML VIAL ONE (17:45)
[2017-12-20 17:49] VITALS: BP 124/82; PULSE 64
[2017-12-20 17:53] LABS: URINE BACTERIA RARE (<OCC); URINE BILIRUBIN NEGATIVE (NEGATIVE); URINE BLOOD 2+ (NEGATIVE); URINE CLARITY Hazy (Clear); URINE COLOR Yellow (YELLOW); URINE GLUCOSE (UA) NORMAL (Normal); URINE LEUKOCYTE ESTERASE NEG Leu/uL (Negative); URINE PROTEIN NEGATIVE (NEGATIVE); URINE UROBILINOGEN NORMAL mg/dL (0.2-1.0)
== END 2017-12-20 18:10 | disposition home or self-care (01) ==
LOC: C.ER 15:32
DX: N13.2 Hydronephrosis with renal and ureteral calculous obstruction (principal); Z87.442 Personal history of urinary calculi
CPT/HCPCS: 74176; 80053; 81001; 85025; 87086; 96361; 96374; 96375; 99285; J1885; J2270; J2405; J7030

== ENCOUNTER 2018-11-14 19:44 | Emergency (ER) | payer SELFPAY ==
[2018-11-14 19:44] VITALS: BMI 26.6
[2018-11-14 19:50] VITALS: BP 124/72; PULSE 100; RESP 20; TEMP 98.2; O2SAT 98
[2018-11-14] MEDS ORDERED: Lidocaine Hydrochloride 5 ML INJ ONE (20:33)
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
--- NOTE | 2018-11-15 11:19 | RAD ---
Date of service: 11/14/2018 PROCEDURE: Radiographs of Nasal Bones HISTORY: trauma, nose swelling COMPARISON: None available. TECHNIQUE: Frontal and lateral radiographs of the nasal bones. 3 views obtained. FINDINGS: There are acute mildly distracted inferiorly displaced fractures in bilateral posterior nasal bones. The nasal septum is midline. There is chronic right frontal and maxillary sinusitis. The left frontal and maxillary sinuses are clear. IMPRESSION: Acute mildly distracted inferiorly displaced fractures in bilateral nasal bones.
== END 2018-11-14 22:21 | disposition home or self-care (01) ==
LOC: C.ER 19:44
DX: S01.511A Laceration without foreign body of lip, initial encounter (principal); S02.2XXA Fracture of nasal bones, initial encounter for closed fracture; S00.83XA Contusion of other part of head, initial encounter; S00.33XA Contusion of nose, initial encounter; Y04.0XXA Assault by unarmed brawl or fight, initial encounter

== ENCOUNTER 2018-11-22 12:55 | Emergency (ER) | payer SELFPAY ==
[2018-11-22 12:55] VITALS: BMI 26.6
[2018-11-22 13:20] VITALS: BP 125/78; PULSE 73; RESP 18; TEMP 98.1; O2SAT 100
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
== END 2018-11-22 14:41 | disposition home or self-care (01) ==
LOC: C.ER 12:55
DX: Z48.02 Encounter for removal of sutures (principal)